=== PATIENT | male | born 1965 | race Caucasian/White ===

== ENCOUNTER 2016-12-18 22:17 | Emergency (ER) | payer OTHER ==
[2016-12-18 23:06] LABS: Hematocrit 40 % (42-52); Hemoglobin 14.3 g/dl (14.0-18.0); Mean Corpuscular HGB Conc 36 g/dl (31-36); Mean Corpuscular Hemoglobin 32 pg (27-31); Mean Corpuscular Volume 90 fL (80-94); Mean Platelet Volume 10 um3 (7.4-10.4); Red Blood Count 4.48 10^6/ul (4.0-5.4); Red Cell Distribution Width 14 % (10.5-15); White Blood Count 9.2 10^3/ul (3.5-10.8)
[2016-12-18 23:22] LABS: ALT 146 U/L (7-52); Acetaminophen < 15 mcg/mL; Albumin 4.4 g/dL (3.2-5.2); Alcohol 103 mg/dL (<10); Alkaline Phosphatase 44 U/L (34-104); BUN/Creatinine Ratio 13.4 (8-20); Blood Urea Nitrogen 15 mg/dL (6-24); CO2 Carbon Dioxide 22 mmol/L (22-32); Calcium 9.4 mg/dL (8.6-10.3); Chloride 100 mmol/L (101-111); EGFR African American 89.6 (>60); EGFR Non-African American 69.7 (>60); Globulin 3.6 g/dL (2-4); Glucose 115 mg/dL (70-100); Salicylate < 2.50 mg/dL (<30); Sodium 131 mmol/L (133-145)
[2016-12-18 23:24] LABS: Urine Bacteria Absent (Absent); Urine Bilirubin Negative (Negative); Urine Glucose Negative (Negative); Urine Nitrite Negative (Negative)
[2016-12-18 23:26] LABS: Anion Gap 9 mmol/L (2-11)
[2016-12-18] MEDS ORDERED: Aspirin TAB* 325 MG PO ONE (23:32)
[2016-12-18] MEDS ORDERED: Ramipril CAP* 2.5 MG PO ONE (23:32)
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
[2016-12-18 23:38] LABS: Benzodiazepine Urine Screen None Detected (None Detect)
[2016-12-19 00:12] LABS: TSH (Thyroid Stimulating Horm) 2.83 mcIU/mL (0.34-5.60)
[2016-12-19] MEDS ORDERED: oxyCODONE TAB* 5 MG TAB PO ONE (00:55)
[2016-12-19 02:26] VITALS: BP 150/87
== END 2016-12-19 06:17 ==
LOC: ED 22:17
DX: T74.11XA Adult physical abuse, confirmed, initial encounter (principal); T14.8XXA Other injury of unspecified body region, initial encounter; Y09 Assault by unspecified means; Y93.9 Activity, unspecified; Y92.9 Unspecified place or not applicable; Y07.02 Wife, perpetrator of maltreatment and neglect
CPT/HCPCS: 36415; 80053; 80307; 80320; 80329; 81003; 81015; 84443; 85025; 87086; 99284; A9270-GY; G0480

== ENCOUNTER → 2019-04-22 07:15 | Day surgery (SDC) | payer OTHER ==
[~2019-04-22 07:15] MED LIST: Diazepam TAB(*) 5 MG ONE; Diazepam TAB(*) 5 MG PO PRN; Flumazenil* 0.1 MG/ML 5 ML MDV ONE; Lidocaine 1% INJ* 10 MG/ML 30 ML SDV ONE; Midazolam* 1 MG/ML 5 ML VIAL (5 MG) ONE; Naloxone* 0.4 MG/ML 1 ML VIAL ONE; ceFAZolin 1 GM/10 ML flush(*) SYRINGE for pocket flush (cardiology) FLUSH ONE; ceFAZolin 2 GM in NS 100 ml - ONCE (Pharmacy Admix) IVPB ONE; fentaNYL* 50 MCG/ML 2 ML VIAL (100 MCG VIAL) ONE
[2019-04-22 09:09] VITALS: BP 122/84
--- NOTE | 2019-04-23 21:34 | OP ---
CC: Dr. Radha Alaniz * DATE OF OPERATION: 04/22/19 - [facility] CATH DATE OF : 69 SURGEON: Padilla Russell MD ANESTHESIA: Local anesthesia with conscious sedation. PRE-OP DIAGNOSES: Ischemic cardiomyopathy, ICD at elective replacement indicator. POST-OP DIAGNOSES: Ischemic cardiomyopathy, ICD at elective replacement indicator. OPERATIVE PROCEDURE: Dual chamber ICD generator change. INDICATIONS: The patient is a 53-year-old gentleman with a history of ischemic cardiomyopathy, history of dual-chamber ICD implantation in May of 2011. The patient has been followed in my office. The patient's ICD reached elective replacement indicator. Generator change was recommended. ESTIMATED BLOOD LOSS: Nil. COMPLICATIONS: None. DESCRIPTION OF PROCEDURE: The patient was in a fasting state. Informed consent had been obtained prior to the procedure. All labs were reviewed. The patient was placed supine on the procedure table. His left deltopectoral area was cleaned and draped in usual fashion. 1% lidocaine was used for local anesthesia. A 4.5 cm incision was made in the previous incision line. Blunt dissection was carried down to the fiber sheath. The fiber sheath was opened and the ICD was removed from the pocket. The ICD was detached from the atrial and ventricular leads. A new generator was attached appropriately to the atrial and ventricular leads. The pocket was flushed with antibiotic infused normal saline. The new generator was placed into the pocket. The surgical incision was closed in 3 layers The explanted device is a Medtronic model [id number], serial number [id number]. The new implanted device is a Medtronic model [id number], serial number [id number]. [id number]/[facility] #: [id number] [facility]
== END | disposition home or self-care (01) ==
LOC: CHICATH 07:15
PROVIDERS: ATTEND Specialist
DX: Z45.010 Encounter for checking and testing of cardiac pacemaker pulse generator [battery] (principal); I25.5 Ischemic cardiomyopathy; I10 Essential (primary) hypertension; I47.2 Ventricular tachycardia; J44.9 Chronic obstructive pulmonary disease, unspecified; G47.33 Obstructive sleep apnea (adult) (pediatric); I25.10 Atherosclerotic heart disease of native coronary artery without angina pectoris; K21.9 Gastro-esophageal reflux disease without esophagitis; E78.2 Mixed hyperlipidemia; Z95.5 Presence of coronary angioplasty implant and graft; Z95.1 Presence of aortocoronary bypass graft; F17.210 Nicotine dependence, cigarettes, uncomplicated
CPT/HCPCS: 33263; 88300; 99156; A9270-GY; C1721; J0690; J2250; J2310; J3010